=== PATIENT | male | born 1935 | race Caucasian/White ===

== ENCOUNTER 2021-06-30 10:20 | Emergency (ER) | payer MEDICARE, SELFPAY ==
[~2021-06-30] VITALS: Ht 170.2 cm; Wt 87.7 kg
[~2021-06-30 10:20] MED LIST: ASPI-1071 PO; ATOR10TA PO; DOCU100C40 PO; HYDR-3972 PO; LATA2.5D14 EACHEYE; ONDA8TAB9 PO; ZOLP5TAB8 PO
[2021-06-30 15:33] VITALS: BP 164/77
== END 2021-07-01 | disposition home or self-care (01) ==
LOC: ER 07-01 16:36
DX: R10.31 Right lower quadrant pain (principal); I25.10 Atherosclerotic heart disease of native coronary artery without angina pectoris; Z87.442 Personal history of urinary calculi; Z95.5 Presence of coronary angioplasty implant and graft; Z79.82 Long term (current) use of aspirin; Z79.899 Other long term (current) drug therapy
CPT/HCPCS: 99281